=== PATIENT | male | born 1970 | race Hispanic/Latino ===

== ENCOUNTER 2023-05-17 10:24 | Emergency (ER) | payer SELFPAY ==
[2023-05-17 10:26] VITALS: BP 133/80
--- NOTE | 2023-05-17 10:34 | ED.GENMED ---
History of Present Illness
<Olesya Chen PA-C - Last Filed: 05/17/23 14:03>
General
Chief Complaint: Ear Problem
Source: patient
Exam Limitations: none
Time Seen by Provider: 05/17/23 10:31
Nursing documentation reviewed up to this point in time: agreed with
Travel History
Have you had any contact with someone who has COVID-19?: No
Do you have any symptoms of coronavirus? Fever > 100 degrees, chills, cough, shortness of breath, sore throat, loss of taste or smell, muscle aches, or headache?: No
History of Present Illness
History of Present Illness:
52-year-old male with past medical history of hyperlipidemia, GERD presenting to the emergency department today with concerns of severe itching in the ears bilaterally for the past week. Patient states that he started to have some pain in his left
ear about a week ago. Patient states that he was seen by his primary care provider and diagnosed with acute otitis media and was started on Augmentin. Patient states that his symptoms did not improve and started to worsen. Patient states that he
now has itching as his predominant symptom, and he feels like there are things moving in his ears. He has a follow up appointment with his PCP this week but he states that his symptoms have gotten so severe that he could not wait. Patient denies any
fevers or chills, cold-like symptoms, decreased hearing, ringing in ears.
Past History
<Olesya Chen PA-C - Last Filed: 05/17/23 14:03>
Past History
ED Past Medical History: Hypercholesterolemia
ED Past Surgical History: None
Social History
Tobacco: Non-smoker
Alcohol: None
Personal:
Living: with family
Employment: Employed
Family History
Family History: Other (Noncontributory)
Review of Systems
<Olesya Chen PA-C - Last Filed: 05/17/23 14:03>
Review of Systems
All Other Systems: ROS reviewed and negative except as documented in HPI and ROS
Phy Exam
<Olesya Chen PA-C - Last Filed: 05/17/23 14:03>
Physical Exam
Physical Exam:
Vitals: Vital signs are stable
General: Patient is well appearing and in no acute distress
Skin: Warm and dry, no rashes or lesions
Head: Atraumatic, normocephalic
Eyes: Conjunctiva clear b/l. No scleral erythema.
Ears: Bilateral external ear canals are erythematous have white plaques. TMs intact b/l with no perforation, no erythema.
Nose: Nares patent b/l.
Throat: No pharyngeal erythema, no tonsillar hypertrophy
Cardiac: Regular rate
Pulm: Normal respiratory effort
Neuro: CN II-XII intact. AAOx3. No focal neurologic deficit.
Course
<Olesya Chen PA-C - Last Filed: 05/17/23 14:03>
Vital Signs
Initial and Last Documented VS:
Initial Vital Signs
Temp Pulse Resp BP Pulse Ox
97.6 F 65 18 133/80 98
05/17/23 10:26 05/17/23 10:26 05/17/23 10:26 05/17/23 10:26 05/17/23 10:26
Last Documented Vital Signs
Temp Pulse Resp BP Pulse Ox
97.6 F 65 18 133/80 98
05/17/23 10:26 05/17/23 10:26 05/17/23 10:26 05/17/23 10:26 05/17/23 10:26
<David Vera DO - Last Filed: 05/17/23 11:51>
Vital Signs
Initial and Last Documented VS:
Initial Vital Signs
Temp Pulse Resp BP Pulse Ox
97.6 F 65 18 133/80 98
05/17/23 10:26 05/17/23 10:26 05/17/23 10:26 05/17/23 10:05/17/23 10:26
Last Documented Vital Signs
Temp Pulse Resp BP Pulse Ox
97.6 F 65 18 133/80 98
05/17/23 10:26 05/17/23 10:26 05/17/23 10:05/17/23 10:05/17/23 10:26
<Olesya Chen PA-C - Last Filed: 05/17/23 14:03>
MDM/Problems Addressed
Differential Diagnosis Includes:
Differentials include otomycosis, malignant otitis externa, acute otitis media, foreign body, allergic reaction
MDM/Problems Addressed:
ear pruritus
Chronic conditions affecting care: Other (HLP)
<REESE Anderson Last Filed: 05/17/23 14:03>
*Pulse Oximetry
Patient hypoxic: no
*Critical Care Note
Total Time (30-74mins, 75-104mins- exclusive of procedures): Not Applicable
Data Reviewed
Review of Other/Old Records Reveals: Records (reviewed ER physician documentation from 08/19/20,, 09/26/19) and Discharge Summary (no discharge summaries in [facility] to review)
Source: patient and family
<Olesya Chen PA-C - Last Filed: 05/17/23 14:03>
Patient Management
Escalation/DeEscalation of care consider admission/obs:
52-year-old male with past medical history of hyperlipidemia, GERD presenting to the emergency department today with concerns of severe itching in the ears bilaterally for the past week. On exam, patient's vital signs are stable, and there is
bilateral erythema and white plaques seen in his external ear canals. History and physical exam consistent with otomycosis. We will treat with acetic acid, patient states he will follow up with ENT and his PCP. Patient stable for discharge.
<Olesya Chen PA-C - Last Filed: 05/17/23 14:03>
Update Note
Update Note:
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
1:58 pm--patient states that multiple pharmacies were out of the acetic acid. I switched patient to antifungal cream to apply into the ear. Discussed instructions with patient. Patient aware of plan.
ED Attending Note
<Olesya Chen PA-C - Last Filed: 05/17/23 14:03>
-
Portions of this chart may have been created with voice recognition software.� Occasional wrong word or��sound alike� substitutions may have occurred due to the inherent limitations of voice recognition software.
<David Vera DO - Last Filed: 05/17/23 11:51>
ED Attending Note
Patient seen and examined by attending physician: Yes
I performed a history and physical exam of patient and discussed management with resident, I reviewed resident's note and agree with documented findings and plan of care.: Yes
ED Attending Note:
I have reviewed and agree with history and treatment plan by Olesya Chen. My exam revealed whitish flakes indicative of fungal infection bilateral ear canals. Treat with acetic acid, continue Augmentin. Follow-up with ENT.
Discharge Plan
Departure
Patient Disposition: Home (Routine Discharge)
Date of Disposition: 05/17/23
Time of Disposition: 11:51
Patient with high blood pressure during this ER visit?: Yes
Condition: Good
Discharge Problem:
Acute Otitis Externa, Otomycosis of both ears
Instructions: Outer Ear Infection (DC), BLOOD PRESSURE
Prescriptions:
New
acetic acid 2 % solution
5 drp otic (ear) Q6H 7 Days Qty: 15 0RF
miconazole nitrate 2 % cream
1 applic topical BID Qty: 14 0RF
Rx Instructions:
Please instill cream into each ear canal twice daily for 10 days.
No Action
clonazepam 1 MG tablet
1 mg PO HS
diclofenac sodium 75 MG tablet,delayed release (DR/EC)
75 mg PO BID
Patient Comments:
Just finished this today 09/24
ezetimibe 10 MG tablet
10 mg PO HS
famotidine 20 MG tablet
20 mg PO BID Qty: 60 1RF
methylprednisolone [Medrol ([place])] 4 MG tablets,dose pack
4 tab PO . DIRECT Qty: 1 0RF
Referrals:
Mehdi William MD [Active] - Call in 1-3 days for appt
UNKNOWN - PT DOES,NOT KNOW [Family Provider] -
Activity Restrictions/Additional Instructions:
I have sent Acetic Acid ear drops to your pharmacy. This will treat your fungal infection. Please instill 5 drops into both ears 4 times daily for 7 days.
We have given you a referral for an ears, nose, and throat doctor. Please call on Friday to schedule an appointment for follow up.
Please return to the emergency department should you experience an acute worsening of your symptoms, decreased hearing, headache, visual changes, ear pain, fevers or chills, or other concerning signs or symptoms.
Please finish your course of Augmentin.
Interventions
Interventions:
*Risk Screen - Suicide Last Done: 05/17/23 10:26
*General Assessment Last Done: 05/17/23 10:26
*Neglect/Abuse Screening Last Done: 05/17/23 10:26
*ED COVID-19 Vaccine History Last Done: 05/17/23 10:26
*Nursing Disposition Last Done: 05/17/23 11:58
Discharge Date and Time
Discharge Date/Time: 05/17/23 11:58
Print Language: YAKUT
== END 2023-05-17 11:58 | disposition home or self-care (01) ==
LOC: EMR 10:24
PROVIDERS: EMERGENCY PHYSICIAN Emergency Medicine
DX: B36.9 Superficial mycosis, unspecified (principal); H62.43 Otitis externa in other diseases classified elsewhere, bilateral; K21.9 Gastro-esophageal reflux disease without esophagitis; E78.00 Pure hypercholesterolemia, unspecified
CPT/HCPCS: 99282

== ENCOUNTER → 2023-08-19 10:30 | Outpatient (REF) | payer OTHER, SELFPAY ==
[2023-08-19 12:00] LABS: ALT (SGPT) 27 U/L (0-50); AST (SGOT) 24 U/L (17-59); Albumin 4.5 g/dl (3.5-5.0); Alkaline Phosphatase 125 U/L (38-126); Blood Urea Nitrogen 19 mg/dl (9-20); Calcium 9.8 mg/dl (8.4-10.2); Carbon Dioxide 27 mmol/L (22-30); Chloride 106 mmol/L (98-107); Glucose 90 mg/dl (70-99); Potassium 4.8 mmol/L (3.5-5.1); Sodium 140 mmol/L (135-145); Total Bilirubin 0.7 mg/dl (0.2-1.3); Total Protein 6.9 g/dl (6.3-8.2); eGFR > 60.00
== END ==
LOC: CLINIC 10:30
PROVIDERS: ATTENDING PHYSICIAN Nurse Practitioner Adult Health
DX: E78.5 Hyperlipidemia, unspecified (principal)
CPT/HCPCS: 36415; 80053

== ENCOUNTER → 2024-04-20 10:08 | Outpatient (REF) | payer OTHER, SELFPAY ==
[2024-04-20 11:35] LABS: Hemoglobin 16.1 g/dL (13.0-18.0); Mean Corp Hgb Conc. 33.5 g/dL (33.0-37.0); Mean Corpuscular Hgb 29.4 pg (27.0-31.0); Mean Corpuscular Volume 87.8 fL (80.0-94.0); Mean Platelet Volume 9.4 fL (7.4-10.4); Platelet Count 327 10^3/uL (130-400); Red Blood Cell Count 5.47 10^6/uL (4.70-6.10); Red Cell Dist. Width 13.4 % (11.5-14.5); White Blood Cell Count 7.5 10^3/uL (4.8-10.8)
[2024-04-20 12:26] LABS: ALT (SGPT) 31 U/L (0-50); AST (SGOT) 21 U/L (17-59); Albumin 4.7 g/dl (3.5-5.0); Alkaline Phosphatase 137 U/L (38-126); Blood Urea Nitrogen 10 mg/dl (9-20); Calcium 9.8 mg/dl (8.4-10.2); Carbon Dioxide 26 mmol/L (22-30); Chloride 103 mmol/L (98-107); Glucose 92 mg/dl (70-99); HDL Cholesterol 52 mg/dl; LDL Cholesterol, Calculated 100 mg/dl; Potassium 4.7 mmol/L (3.5-5.1); Sodium 139 mmol/L (135-145); Total Bilirubin 0.9 mg/dl (0.2-1.3); Total Cholesterol 175 mg/dl (50-199); Total Protein 7.2 g/dl (6.3-8.2); Triglyceride 119 mg/dl (10-149); Very Low Density Lipoprotein 23 mg/dl (0-30); eGFR > 60.00
== END ==
LOC: CLINIC 10:08
PROVIDERS: ATTENDING PHYSICIAN Nurse Practitioner Adult Health
DX: E78.5 Hyperlipidemia, unspecified (principal)
CPT/HCPCS: 36415; 80053; 80061; 85027